=== PATIENT | female | born 1980 | race Caucasian/White ===

== ENCOUNTER 2020-06-01 09:40 | Outpatient (CLI) | payer BC, SELFPAY ==
--- NOTE | 2020-06-01 10:01 | XRR_ITS ---
PROCEDURE INFORMATION: Exam: XR Cervical Spine, 2 or 3 Views Exam date and time: 06/01/2020 10:02 AM Age: 40 years old Clinical indication: Neck pain; Additional info: Headache/chronic neck pain TECHNIQUE: Imaging protocol: XR of the cervical spine, 2 or 3 views. COMPARISON: No relevant prior studies available. FINDINGS: Bones/joints: Mild chronic degenerative disease is present with small osteophyte formation on the vertebral bodies. There is mild narrowing of the C5-C6 disc space. There is no malalignment. No fracture or other acute abnormalities are seen. Soft tissues: Unremarkable. XR/XR cervical spine 3V* [id number] IMPRESSION: Mild chronic degenerative disease. No acute abnormality.
== END 2020-06-01 09:41 | disposition home or self-care (01) ==
PROVIDERS: PCP Electrodiagnostic Medicine; Visit Provider Electrodiagnostic Medicine
DX: R51.9 Headache, unspecified (principal); M62.830 Muscle spasm of back; M54.2 Cervicalgia; F41.9 Anxiety disorder, unspecified
CPT/HCPCS: 72040

== ENCOUNTER 2022-02-24 10:27 | Outpatient (CLI) | payer OTHER, SELFPAY ==
--- NOTE | 2022-02-24 10:37 | MM_ITS ---
WS: [id number] VIEWS: MLO and CC views both breasts. 3D digital tomosynthesis is also included in this exam. No priors. Findings: There was no sign of mass, architectural distortion or suspicious calcification in either breast. He terogeneously dense MM/[place] [id number] Impression: BI-RADS: 2-Benign FOLLOW-UP: 1 Year Follow-up This mammogram was also analyzed by the Computer [employer].
== END 2022-02-24 10:28 | disposition home or self-care (01) ==
LOC: RAD 10:30
PROVIDERS: PCP Electrodiagnostic Medicine; Visit Provider Electrodiagnostic Medicine
DX: Z12.31 Encounter for screening mammogram for malignant neoplasm of breast (principal)
CPT/HCPCS: 77063; 77067

== ENCOUNTER 2022-07-05 12:24 | Emergency (ER) | payer OTHER, SELFPAY ==
[2022-07-05 12:26] VITALS: PULSE 88; RESP 16; TEMP 36.6; O2SAT 100; BMI 20.3
--- NOTE | 2022-07-05 12:29 | XR_ITS ---
WS: [id number] XR chest 1V portable [id number] REASON FOR EXAM: dyspnea/cough FINDINGS: Thoracic aorta and mediastinum are normal. The heart size is normal. There is calcified granulomatous disease in both hemithoraces. Reticular interstitial and patchy groundglass lung opacity in the right lower lung. Similar but less notable findings in the left lower lung field. No pleural abnormality. Mild thoracic scoliosis with mild changes of degenerative spondylosis. XR/XR chest 1V portable [id number] IMPRESSION: Findings suggesting early phase pneumonitis.
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
[2022-07-05 12:31] VITALS: BP 153/106; PULSE 92; RESP 16; O2SAT 100
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
[2022-07-05] MEDS: ketorolac 30 mg/mL INJ IVP (13:12)
[2022-07-05] MEDS: orphenadrine 30 mg/mL Inj 2 mL 60 MG IVP (13:17)
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
[2022-07-05 13:27] LABS: Basophils % 0.3 %; Eosinophils % 0.4 %; Hematocrit 37.2 % (37.0-47.0); Hemoglobin 11.4 g/dL (11.5-15.3); Lymphocytes # 1.7 10^3/uL (0.8-4.8); Lymphocytes % 22.5 %; Mean Corpuscular HGB Conc 30.6 g/dL (30.0-36.0); Mean Corpuscular Hemoglobin 25.7 pg (28.0-34.0); Mean Platelet Volume 10.5 fL (7.4-10.4); Monocytes # 0.6 10^3/uL (0.2-0.9); Monocytes % 7.1 %; Neutrophils # 5.39 10^3/uL (1.8-7.7); Neutrophils % 69.4 %; Nucleated Red Blood Cells % 0 %; Platelet Count 294 10^3/cmm (130-400); Red Blood Count 4.43 10^6/uL (4.1-5.3); Red Cell Distribution Width 15.9 % (12.1-15.1); White Blood Count 7.8 10^3/uL (4.0-10.0)
[2022-07-05 13:44] LABS: Alanine Aminotransferase 9 U/L (0-33); Albumin Level 4.2 g/dL (3.5-5.2); Alkaline Phosphatase 71 U/L (35-105); Anion Gap 17.5 (5-19); Aspartate Amino Transferase 18 U/L (0-32); Blood Urea Nitrogen 11 mg/dL (6-20); Calcium 9.2 mg/dL (8.5-10.5); Carbon Dioxide 21 mmol/L (22-29); Chloride 102 mmol/L (98-107); Globulin 3.4 g/dL (1.3-4.6); Glomerular Filtration Rate 110.2 mL/min (90-130); Glucose 92 mg/dL (65-115); Osmolality Calculated 283 mOsm/kg (285-295); Potassium 3.5 mmol/L (3.5-5.1); Sodium 137 mmol/L (136-145); Total Bilirubin 0.4 mg/dL (0.15-1.2); Total Protein 7.6 g/dL (6.6-8.7)
[2022-07-05 15:28] LABS: Add Urine Microscopic? YES; Bilirubin Urine Neg (Negative); Blood Urine 3+ (Negative); Glucose Urine UA Norm (Normal); Ketones Urine Negative (Negative); Leukocyte Esterase Urine Negative (Negative); Nitrate Urine Negative (Negative); Protein Urine Trace (Negative); Urine Appearance Hazy (CLEAR); Urine Color Light yellow (Yellow); Urobilinogen Urine Neg (Negative); pH Urine 6 (5-7)
[2022-07-05 15:29] LABS: Add Urine Culture? No; Bacteria Urine 3+ /hpf; Mucus Urine 4+ /hpf; RBC Urine 15-25 /hpf (0-2); Squamous Epithelial Cell Urine 15-25 /hpf (0-5); WBC Urine 0-4 /hpf (0-5)
== END 2022-07-05 15:10 | disposition home or self-care (01) ==
PROVIDERS: Emergency Provider Family Medicine; PCP Electrodiagnostic Medicine
DX: S16.1XXA Strain of muscle, fascia and tendon at neck level, initial encounter (principal); V43.52XA Car driver injured in collision with other type car in traffic accident, initial encounter
CPT/HCPCS: 71045; 72040; 72125; 80053; 81001; 85025; 96374; 96375; 99285; J1885; J2360

== ENCOUNTER 2022-08-04 13:34 | Outpatient (CLI) | payer OTHER, SELFPAY ==
--- NOTE | 2022-08-04 | CTR_ITS ---
PROCEDURE INFORMATION: Exam: CT Chest With Contrast; Diagnostic Exam date and time: 08/04/2022 1:57 PM Age: 42 years old Clinical indication: Abnormal findings; Abnormal radiologic exam of lung or chest; Additional info: Solitary pulmonary nodule TECHNIQUE: Imaging protocol: Diagnostic computed tomography of the chest with contrast. Radiation optimization: All CT scans at this facility use at least one of these dose optimization techniques: automated exposure control; mA and/or kV adjustment per patient size (includes targeted exams where dose is matched to clinical indication); or iterative reconstruction. Contrast material: OMNI 350; Contrast volume: 100 ml; Contrast route: INTRAVENOUS (IV); REPORTING DATA: Count of CT and Cardiac NM exams in prior 12 months: This patient has received [address] and 0 known cardiac nuclear medicine studies in the 12 months prior to the current study. COMPARISON: CR XR ribs RT mn 3V w CXR1V [id number] 07/11/2022 4:26 PM RADIATION DOSE METRICS: Total DLP (mGy-cm): 205.11 FINDINGS: Lungs: Unremarkable. No consolidation. No measurable pulmonary nodule is seen right lung base and medial left upper lobe. Small area of nodular appearance with adjacent scarring is seen within the anterior left lung base adjacent to the left cardiac margin and left pleural margin, otherwise. Pleural spaces: Unremarkable. No pneumothorax. No pleural effusion. Heart: Unremarkable. No cardiomegaly. No pericardial effusion. Lymph nodes: Unremarkable. No enlarged lymph nodes. Vasculature: Unremarkable. No aortic aneurysm. Bones/joints: No acute findings. Soft tissues: Unremarkable. CT/CT chest w con* [id number] IMPRESSION: 1. Suggestion of small area of nodular scarring in the anterior left lung base and re-evaluation with 3-6 months follow-up can be performed to ensure stability. 2. No pulmonary nodule is seen within the right lung base and medial left upper lobe as question on recent chest exam. 3. No acute findings, otherwise.
[2022-08-04] MEDS: iohexol 350 mg/mL 500 mL Btl (per mL) IV (13:58)
== END 2022-08-04 13:35 | disposition home or self-care (01) ==
PROVIDERS: PCP Electrodiagnostic Medicine; Visit Provider Electrodiagnostic Medicine
DX: R91.1 Solitary pulmonary nodule (principal)
CPT/HCPCS: 71260; Q9967

== ENCOUNTER 2023-02-07 13:40 | Outpatient (CLI) | payer OTHER, SELFPAY ==
--- NOTE | 2023-02-07 13:56 | CT_ITS ---
WS: [id number] CT CHEST TECHNIQUE: Contrast enhanced CT of the chest with coronal and sagittal reformatted images. CLINICAL INFORMATION: NODULE OF LUNG COMPARISON: CT chest 08/04/2022 DLP: 236.[address] scans at [facility] use at least one of these dose optimization techniques: automated e xposure control; mA and/or kV adjustment per patient size (includes targeted exams where dose is matc hed to clinical indication); or iterative reconstruction. FINDINGS: Parenchymal scarring and nodularity in the lingula is unchanged compared to previous. No evidence of progression. No other suspicious pulmonary parenchymal abnormalities. Normal caliber thoracic aorta. No mediastinal or hilar lymphadenopathy. No axillary lymphadenopathy. Mild thoracic kyphosis. IMPRESSION: 1. Stable parenchymal scarring and nodularity in the lingula unchanged. 2. No other suspicious pulmonary parenchymal abnormalities. 3. No mediastinal or hilar lymphadenopathy.
[2023-02-07] MEDS: iohexol 350 mg/mL 500 mL Btl (per mL) IV (14:23)
== END 2023-02-07 13:41 | disposition home or self-care (01) ==
PROVIDERS: PCP Electrodiagnostic Medicine; Visit Provider Electrodiagnostic Medicine
DX: R91.1 Solitary pulmonary nodule (principal)
CPT/HCPCS: 71260; Q9967

== ENCOUNTER 2024-04-11 14:01 | Outpatient (CLI) | payer OTHER, SELFPAY ==
--- NOTE | 2024-04-11 14:04 | CTR_ITS ---
PROCEDURE INFORMATION: Exam: CT Chest With Contrast; Diagnostic Exam date and time: 04/11/2024 3:33 PM Age: 44 years old Clinical indication: Chronic abdominal pain. Upper abdomen; Prior hysterectomy. HX of lung nodules, TECHNIQUE: Imaging protocol: Diagnostic computed tomography of the chest with contrast. Radiation optimization: All CT scans at this facility use at least one of these dose optimization techniques: automated exposure control; mA and/or kV adjustment per patient size (includes targeted exams where dose is matched to clinical indication); or iterative reconstruction. Contrast material: OMNI 350; Contrast volume: 100 ml; Contrast route: INTRAVENOUS (IV); COMPARISON: CT chest w con* [id number] 02/07/2023 2:17 PM RADIATION DOSE METRICS: Total DLP (mGy-cm): 475.88 FINDINGS: Lungs: Chronic scarring in the lingula is unchanged the prior exam. Pleural spaces: Unremarkable. No pneumothorax. No pleural effusion. Heart: Unremarkable. No cardiomegaly. No pericardial effusion. Lymph nodes: Unremarkable. No enlarged lymph nodes. Vasculature: Unremarkable. No aortic aneurysm. Bones/joints: Unremarkable. No acute fracture. Soft tissues: Unremarkable. PROCEDURE INFORMATION: Exam: CT Abdomen And Pelvis With Contrast Exam date and time: 04/11/2024 3:33 PM Age: 44 years old Clinical indication: Chronic abdominal pain. Upper abdomen; Prior hysterectomy. HX of lung nodules, TECHNIQUE: Imaging protocol: Computed tomography of the abdomen and pelvis with contrast. Radiation optimization: All CT scans at this facility use at least one of these dose optimization techniques: automated exposure control; mA and/or kV adjustment per patient size (includes targeted exams where dose is matched to clinical indication); or iterative reconstruction. Contrast material: OMNI 350; Contrast volume: 100 ml; Contrast route: INTRAVENOUS (IV); COMPARISON: CT chest w con* [id number] 02/07/2023 2:17 PM RADIATION DOSE METRICS: Total DLP (mGy-cm): 475.88 FINDINGS: Liver: Normal. No mass. Gallbladder and biliary ducts: There is a 5 mm hyperdensity along the gallbladder wall seen on series 6, image 35 consistent with a polyp versus noncalcified stone or sludge. Pancreas: Normal. No ductal dilation. Spleen: Normal. No splenomegaly. Adrenal glands: Normal. No mass. Kidneys and ureters: Normal. No hydronephrosis. Stomach and bowel: Colonic constipation is present. Appendix: Appendix not definitely visualized. No pericecal inflammatory changes are seen. Intraperitoneal space: Unremarkable. No free air. No significant fluid collection. Vasculature: Unremarkable. No abdominal aortic aneurysm. Lymph nodes: Unremarkable. No enlarged lymph nodes. Urinary bladder: Unremarkable as visualized. Reproductive: The uterus is not visualized, consistent with hysterectomy. Bilateral ovarian follicles. Bones/joints: Unremarkable. No acute fracture. Soft tissues: Unremarkable. CT/CT chest abdpel w/*[id number] IMPRESSION: No acute findings. IMPRESSION: 1. Colonic constipation is present. 2. There is a 5 mm hyperdensity along the gallbladder wall consistent with a polyp versus noncalcified stone or sludge.
[2024-04-11] MEDS: iohexol 350 mg/mL 500 mL Btl (per mL) IV (15:49)
[2024-04-11] MEDS: iohexol 350 mg/mL 500 mL Btl (per mL) PO (15:50)
== END 2024-04-11 14:02 | disposition home or self-care (01) ==
PROVIDERS: PCP Electrodiagnostic Medicine; Visit Provider Electrodiagnostic Medicine
DX: R91.1 Solitary pulmonary nodule (principal); K82.4 Cholesterolosis of gallbladder; K59.00 Constipation, unspecified; Z90.710 Acquired absence of both cervix and uterus
CPT/HCPCS: 71260; 74177